=== PATIENT | female | born 1950 | race Caucasian/White ===

== ENCOUNTER 2019-08-10 09:35 | Day surgery (SDC) | payer MEDICARE ==
[2019-08-09 15:44] LABS: BASOPHILS # (AUTO) 0.1 X10'3 (0-0.2); BASOPHILS % (AUTO) 0.9 % (0-1); EOSINOPHILS # (AUTO) 0.2 X10'3 (0-0.9); EOSINOPHILS % (AUTO) 1.7 % (0-6); HEMATOCRIT 37.9 % (35.0-45.0); LYMPHOCYTES # (AUTO) 2.8 X10'3 (1.1-4.8); LYMPHOCYTES % (AUTO) 22.5 % (21-51); MEAN CORPUSCULAR HEMOGLOBIN 19.4 PG (27.0-31.0); MEAN CORPUSCULAR HGB CONC 31.6 g/dL (33.0-36.5); MEAN CORPUSCULAR VOLUME 61.6 FL (78-98); MEAN PLATELET VOLUME 8.2 FL (7.4-10.4); MONOCYTES # (AUTO) 0.8 X10'3 (0-0.9); MONOCYTES % (AUTO) 6.4 % (2-12); NEUTROPHILS # (AUTO) 8.4 X10'3 (1.8-7.7); NEUTROPHILS % (AUTO) 68.5 % (42-75); PLATELET COUNT 405 X10'3 (140-440); RED BLOOD COUNT 6.16 X10'6 (4.20-5.60); RED CELL DISTRIBUTION WIDTH 16.6 % (11.5-14.5); WHITE BLOOD COUNT 12.3 X10'3 (4.5-11.0)
[2019-08-09 15:53] LABS: ALBUMIN 3.9 G/DL (3.4-5.0); ANION GAP 3 (8-16); BLOOD UREA NITROGEN 13 MG/DL (7-18); BUN/CREATININE RATIO 19.4 (6.6-38.0); CHLORIDE 104 MMOL/L (99-107); CREATININE 0.67 MG/DL (0.40-0.90); GLUCOSE 117 MG/DL (70-104); POTASSIUM 4.1 MMOL/L (3.5-5.1); SODIUM 140 MMOL/L (135-145); TOTAL CARBON DIOXIDE 32.8 MMOL/L (24-32); eGFR 88 ML/MIN
[2019-08-09 15:56] LABS: PARTIAL THROMBOPLASTIN TIME 25 SECONDS (22-32)
[2019-08-09 16:10] LABS: PLATELET ESTIMATE NORMAL
[2019-08-09 16:12] LABS: ANISOCYTOSIS 1+; ELLIPTOCYTES 2+; HYPOCHROMASIA 1+; MICROCYTOSIS 2+; SCHISTOCYTES FEW; TARGET CELLS FEW
[2019-08-09 16:16] LABS: POIKILOCYTOSIS 1+; POLYCHROMASIA FEW; SPHEROCYTES FEW; TEAR DROP CELLS 2+
[2019-08-10] VITALS (9 sets, daily range): BP systolic 100–133; BP diastolic 44–89
[~2019-08-10] VITALS: Ht 170.2 cm; Wt 111.0 kg
[~2019-08-10 09:35] MED LIST: APIX5TAB3 PO; FURO-150 PO; NO HOME MEDS; SOTA80TA73 PO
[2019-08-10] MEDS ORDERED: acetylcysteine 200 MG/ml 4ml vial PO ONE (10:00)
[2019-08-10] MEDS ORDERED: LIDOcaine/PRILOcaine 5gm cream TP ONE (10:00)
[2019-08-10] MEDS ORDERED: diphenhydrAMINE 25mg capsule PO PRN (10:00)
[2019-08-10] MEDS ORDERED: APIX5TAB3 PO (10:38)
[2019-08-10] MEDS ORDERED: SOTA80TA73 PO (10:38)
[2019-08-10] MEDS ORDERED: FURO-150 PO (10:38)
[2019-08-10] MEDS ORDERED: LORazepam 0.5 MG tablet PO PRN (11:35)
[2019-08-10] MEDS ORDERED: normal saline 1,000 ML IV SCH (11:35)
[2019-08-10] MEDS ORDERED: acetylcysteine 200 MG/ml 4ml vial PO SCH ×2 (11:40→20:00)
[2019-08-10] MEDS: normal saline 1,000 ML IV SCH ×2 (11:40→15:30)
[2019-08-10] MEDS ORDERED: heparin 1,000unit/ml 10ml vial 10 ML ONE (13:16)
[2019-08-10] MEDS ORDERED: verapamil 2.5 mg/ml inj IV ONE (13:16)
[2019-08-10] MEDS ORDERED: LIDOcaine 1% (10mg/ml)w/preservative injection 20ml MDV ONE (13:16)
[2019-08-10] MEDS ORDERED: fentaNYL/PF 50MCG/1 ML 2ML syringe ONE (13:16)
[2019-08-10] MEDS ORDERED: iohexol 350 MG/ML 50ML vial IV ONE (13:16)
[2019-08-10] MEDS ORDERED: midazolam 2 mg/2 ml injection ONE (13:16)
[2019-08-10] MEDS ORDERED: nitroGLYCERIN-Tridil 50MG/D5W 250 ML IV ONE (13:17)
[2019-08-10] MEDS ORDERED: iohexol 350MG/ML 100ml bottle IV ONE (13:17)
[2019-08-10] MEDS ORDERED: normal saline 1000ml 1,000 ML IV SCH (15:15)
[2019-08-10 18:26] LABS: ISTAT HGB ART 12.6 g/dl (12.0-16.0); ISTAT Hct ART 37 %PCV (35-48); ISTAT Hct MIX 35 %PCV (35-48); ISTAT O2 SATURATION ARTERIAL 97 % (95-98); ISTAT O2 SATURATION MIX VENOUS 70 % (60-80); ISTAT SOURCE ART; ISTAT SOURCE MIX
== END 2019-08-10 19:00 | disposition home or self-care (01) ==
LOC: SSTAY O 09:35
PROVIDERS: ATTEND Internal Medicine Cardiovascular Disease
DX: R94.39 Abnormal result of other cardiovascular function study (principal); I25.10 Atherosclerotic heart disease of native coronary artery without angina pectoris; I48.0 Paroxysmal atrial fibrillation; E78.5 Hyperlipidemia, unspecified; G47.30 Sleep apnea, unspecified; I11.0 Hypertensive heart disease with heart failure; I50.21 Acute systolic (congestive) heart failure; Z98.890 Other specified postprocedural states; Z79.82 Long term (current) use of aspirin; Z79.899 Other long term (current) drug therapy
CPT/HCPCS: 36415; 80048; 82803; 85014; 85025; 85610; 85730; 93005; 93460; 99152; 99153; C1769; C1894; J1644; J2001; J2250; J3010; J7030; Q0163; Q9967; A4620; A5120; J3490

== ENCOUNTER 2019-11-24 06:56 | Day surgery (SDC) | payer MEDICARE ==
[2019-11-23 11:05] LABS: BASOPHILS # (AUTO) 0.1 X10'3 (0-0.2); BASOPHILS % (AUTO) 0.9 % (0-1); EOSINOPHILS # (AUTO) 0.2 X10'3 (0-0.9); EOSINOPHILS % (AUTO) 2.5 % (0-6); HEMATOCRIT 37.7 % (35.0-45.0); HEMOGLOBIN 11.7 g/dl (12.0-16.0); LYMPHOCYTES # (AUTO) 2.2 X10'3 (1.1-4.8); LYMPHOCYTES % (AUTO) 26.6 % (21-51); MEAN CORPUSCULAR HEMOGLOBIN 18.9 PG (27.0-31.0); MEAN CORPUSCULAR HGB CONC 31.1 g/dL (33.0-36.5); MEAN CORPUSCULAR VOLUME 60.7 FL (78-98); MEAN PLATELET VOLUME 8.6 FL (7.4-10.4); MONOCYTES # (AUTO) 0.5 X10'3 (0-0.9); MONOCYTES % (AUTO) 5.7 % (2-12); NEUTROPHILS # (AUTO) 5.3 X10'3 (1.8-7.7); NEUTROPHILS % (AUTO) 64.3 % (42-75); PLATELET COUNT 303 X10'3 (140-440); RED BLOOD COUNT 6.21 X10'6 (4.20-5.60); RED CELL DISTRIBUTION WIDTH 17.1 % (11.5-14.5); WHITE BLOOD COUNT 8.2 X10'3 (4.5-11.0)
[2019-11-23 11:12] LABS: ALBUMIN 3.9 G/DL (3.4-5.0); ANION GAP 8 (8-16); BLOOD UREA NITROGEN 9 MG/DL (7-18); CHLORIDE 107 MMOL/L (99-107); CREATININE 0.69 MG/DL (0.40-0.90); GLUCOSE 139 MG/DL (70-104); POTASSIUM 3.9 MMOL/L (3.5-5.1); SODIUM 143 MMOL/L (135-145); TOTAL CARBON DIOXIDE 28.3 MMOL/L (24-32); eGFR 85 ML/MIN
[2019-11-23 11:56] LABS: PLATELET ESTIMATE NORMAL
[2019-11-23 11:57] LABS: ANISOCYTOSIS 1+; ELLIPTOCYTES 1+; MICROCYTOSIS 2+; SCHISTOCYTES 1+
[2019-11-23 11:58] LABS: TEAR DROP CELLS FEW
[2019-11-24] VITALS (18 sets, daily range): BP systolic 113–170; BP diastolic 48–96
[~2019-11-24] VITALS: Ht 170.2 cm; Wt 108.4 kg
[~2019-11-24 06:56] MED LIST changes: -NO HOME MEDS
[2019-11-24] MEDS ORDERED: MIDAZolam 1mg/ml 10ml vial IV ONE (07:25)
[2019-11-24] MEDS ORDERED: amiodarone in dextrose, iso-osm 150mg/100ml bag IV ONE (07:25)
[2019-11-24] MEDS ORDERED: diphenhydrAMINE 25mg capsule PO ONE (07:25)
[2019-11-24] MEDS ORDERED: morphine 10mg/ml inj. IV ONE (07:25)
[2019-11-24] MEDS ORDERED: normal saline 1000ml 1,000 ML IV SCH (07:25)
[2019-11-24] MEDS ORDERED: LORazepam 0.5 MG tablet PO ONE (07:25)
[2019-11-24] MEDS ORDERED: atropine 0.1mg/ml 10ml syringe IV ONE (07:25)
[2019-11-24] MEDS ORDERED: FLEC100T2 PO (07:40)
== END 2019-11-24 11:30 | disposition home or self-care (01) ==
LOC: SSTAY O 06:56 → MED 3N 06:57 → SSTAY O 11:30
PROVIDERS: ATTEND Internal Medicine Cardiovascular Disease
DX: I48.19 Other persistent atrial fibrillation (principal); I25.10 Atherosclerotic heart disease of native coronary artery without angina pectoris; I11.0 Hypertensive heart disease with heart failure; I50.21 Acute systolic (congestive) heart failure; I49.5 Sick sinus syndrome; E78.5 Hyperlipidemia, unspecified; Z79.899 Other long term (current) drug therapy; Z86.12 Personal history of poliomyelitis; Z98.890 Other specified postprocedural states
CPT/HCPCS: 36415; 80048; 85025; 85610; 92960; 93005; J2250; J2270; J7030; Q0163; GO378

== ENCOUNTER 2021-01-02 09:51 | Day surgery (SDC) | payer MEDICARE ==
[2021-01-01 14:36] LABS: BASOPHILS # (AUTO) 0.1 X10'3 (0-0.2); BASOPHILS % (AUTO) 0.7 % (0-1); EOSINOPHILS # (AUTO) 0.2 X10'3 (0-0.9); EOSINOPHILS % (AUTO) 1.6 % (0-6); HEMATOCRIT 36.2 % (35.0-45.0); HEMOGLOBIN 11.4 g/dl (12.0-16.0); LYMPHOCYTES # (AUTO) 2.6 X10'3 (1.1-4.8); LYMPHOCYTES % (AUTO) 24.4 % (21-51); MEAN CORPUSCULAR HEMOGLOBIN 19.1 PG (27.0-31.0); MEAN CORPUSCULAR HGB CONC 31.5 g/dL (33.0-36.5); MEAN CORPUSCULAR VOLUME 60.7 FL (78-98); MEAN PLATELET VOLUME 8.6 FL (7.4-10.4); MONOCYTES # (AUTO) 0.6 X10'3 (0-0.9); MONOCYTES % (AUTO) 5.8 % (2-12); NEUTROPHILS # (AUTO) 7.1 X10'3 (1.8-7.7); NEUTROPHILS % (AUTO) 67.5 % (42-75); PLATELET COUNT 350 X10'3 (140-440); RED BLOOD COUNT 5.96 X10'6 (4.20-5.60); WHITE BLOOD COUNT 10.6 X10'3 (4.5-11.0)
[2021-01-01 14:45] LABS: ALBUMIN 3.9 G/DL (3.4-5.0); ANION GAP 7 (8-16); BLOOD UREA NITROGEN 14 MG/DL (7-18); BUN/CREATININE RATIO 23.3 (6.6-38.0); CHLORIDE 105 MMOL/L (99-107); GLUCOSE 121 MG/DL (70-104); SODIUM 141 MMOL/L (135-145); TOTAL CARBON DIOXIDE 28.8 MMOL/L (24-32); eGFR > 90 ML/MIN
[2021-01-01 15:48] LABS: PLATELET ESTIMATE NORMAL
[2021-01-01 15:49] LABS: ANISOCYTOSIS 1+; ELLIPTOCYTES 1+; MICROCYTOSIS 2+; TEAR DROP CELLS FEW
[2021-01-01 15:50] LABS: HYPOCHROMASIA 1+; TARGET CELLS FEW
[2021-01-02] VITALS (14 sets, daily range): BP systolic 106–168; BP diastolic 51–88
[~2021-01-02] VITALS: Ht 170.2 cm; Wt 105.0 kg
[~2021-01-02 09:51] MED LIST changes: +FLEC100T2 PO; -SOTA80TA73 PO
[2021-01-02] MEDS ORDERED: CARV3.122 PO (10:29)
[2021-01-02] MEDS ORDERED: OMEG1CAP46 PO (10:29)
[2021-01-02] MEDS ORDERED: RED600TA PO (10:29)
[2021-01-02] MEDS ORDERED: morphine 10mg/ml inj. IV ONE (11:05)
[2021-01-02] MEDS ORDERED: MIDAZolam 1mg/ml 10ml vial IV ONE (11:05)
[2021-01-02] MEDS ORDERED: diphenhydrAMINE 25mg capsule PO ONE (11:05)
[2021-01-02] MEDS ORDERED: normal saline 1000ml 1,000 ML IV SCH (11:05)
[2021-01-02] MEDS ORDERED: atropine 0.1mg/ml 10ml syringe IV ONE (11:05)
[2021-01-02] MEDS ORDERED: amiodarone 150mg/dext, iso-os 100 ML IV ONE (11:05)
[2021-01-02] MEDS ORDERED: LORazepam 0.5 MG tablet PO ONE (11:05)
== END 2021-01-02 14:50 | disposition home or self-care (01) ==
LOC: SSTAY O 09:51
PROVIDERS: ATTEND Internal Medicine Cardiovascular Disease
DX: I48.0 Paroxysmal atrial fibrillation (principal); I49.5 Sick sinus syndrome; I25.10 Atherosclerotic heart disease of native coronary artery without angina pectoris; I11.0 Hypertensive heart disease with heart failure; I50.21 Acute systolic (congestive) heart failure; E78.5 Hyperlipidemia, unspecified; G47.30 Sleep apnea, unspecified; E66.9 Obesity, unspecified; Z68.37 Body mass index [BMI] 37.0-37.9, adult; M19.90 Unspecified osteoarthritis, unspecified site; Z86.12 Personal history of poliomyelitis; Z98.890 Other specified postprocedural states; Z79.01 Long term (current) use of anticoagulants; Z79.899 Other long term (current) drug therapy; Z72.89 Other problems related to lifestyle; Z82.49 Family history of ischemic heart disease and other diseases of the circulatory system
CPT/HCPCS: 80048; 85025; 92960; 93005; 94760; 94799; J0461; J2250; J2270; J7030; Q0163; 85008

== ENCOUNTER 2022-10-28 14:20 | Outpatient (CLI) | payer MEDICARE ==
[~2022-10-28 14:20] MED LIST changes: +CARV3.122 PO; +OMEG1CAP46 PO; +RED600TA PO
== END 2022-10-28 23:59 | disposition home or self-care (01) ==
LOC: CARD DIAG 14:20
PROVIDERS: ATTEND Internal Medicine Cardiovascular Disease
DX: I08.8 Other rheumatic multiple valve diseases (principal)
CPT/HCPCS: 93306